=== PATIENT | female | born 1965 | race American Indian/Alaskan Native ===

== ENCOUNTER 2022-02-15 13:56 | Outpatient (CLI) | payer OTHER ==
--- NOTE | 2022-02-15 14:24 | XRay Report ---
CHEST 2 VIEWS INDICATION / CLINICAL INFORMATION: BRONCHITIS. COMPARISON: None available. FINDINGS: SUPPORT DEVICES: None. HEART / MEDIASTINUM: No significant abnormality. LUNGS / PLEURA: No significant pulmonary abnormality. No significant pleural effusion. No pneumothora x. ADDITIONAL FINDINGS: No significant additional findings. IMPRESSION: 1. No acute abnormality of the chest. Signer Name: Sahil Castillo MD Signed: 02/15/2022 2:19 PM Workstation Name: [id number]
== END 2022-02-15 13:57 | disposition home or self-care (01) ==
LOC: XRAY 13:56
PROVIDERS: ATTEND Nurse Practitioner Family
DX: J40 Bronchitis, not specified as acute or chronic (principal)
CPT/HCPCS: 71046